=== PATIENT | female | born 1990 | race Caucasian/White ===

== ENCOUNTER 2017-02-08 21:30 | Emergency (ER) | payer OTHER ==
--- NOTE | ~2017-02-08 | EKG ---
PATIENT: RITESH THOMPSON UNIT #: [id number] Ventricular Rate: 89 BPM Atrial Rate: 89 BPM P-R Interval: 134 ms QRS Duration: 80 ms Q-T Interval: 364 ms QTC Calculation(Bezet): 442 ms P Arp: 76 degrees Calculated R Arp: 72 degrees Calculated T Arp: 54 degrees Diagnosis Line: Sinus rhythm with Possible Premature atrial Diagnosis Line: complexes with Aberrant conduction Diagnosis Line: Otherwise normal ECG Diagnosis Line: No previous ECGs available Diagnosis Line: Confirmed by CHEYENNE ODOM MD ([id number]) on Diagnosis Line: 02/12/2017 9:01:16 AM INTERPRETING MD: LEI MCELROY
--- NOTE | ~2017-02-08 | CR63 ---
[facility] A Service of [facility] RADIOLOGY TEXT RESULTS PATIENT: RITESH THOMPSON LOCATION: SED : 86 UNIT #: [id number] AGE: [address]: EDELMIRA GIRALDO SEX: F ORDER DR: [id number] [address] [address] [id number] MR#: [id number] Acc #: [id number] NAME: RITESH THOMPSON. : 1990 SEX: F STUDY DATE/TIME: 02/08/2017 22:53 UNIT: SED ROOM: STUDY DESCRIPTION: CR Chest 2 View Attending Physician: Edelmira Giraldo Aprn Ordering Physician: Edelmira Giraldo Aprn Primary Care Physician: No Primary Care Physician MEDICAL IMAGING REPORT This report is preliminary unless electronic signature is present. EXAM PA and lateral chest HISTORY Chest pain since yesterday. Painful breathing. COMPARISON 04/08/2016 FINDINGS PA and lateral examination of the chest upright shows a good expansion of the parenchyma with a normal distribution of the pulmonary vascularity. There is no indication of congestion, effusion, infiltrate, tumor, or nodular density. The pleural reflections and diaphragmatic contours are normal. The cardiac silhouette and mediastinal anatomy is within normal limits. IMPRESSION Normal chest. Dictated by... Jarvis Grijalva M.D. THIS IS AN ELECTRONICALLY VERIFIED REPORT Jarvis Grijalva M.D. at 02/09/2017 1:43 PM ATILIO/joyce TD: 02/09/2017 13:39 JOB #: [id number] [facility] A Service [facility] RADIOLOGY TEXT RESULTS PATIENT: RITESH THOMPSON LOCATION: SED : [birth year] UNIT #: [id number] AGE: [address]: EDELMIRA GIRALDO SEX: F ORDER DR: MEDICAL IMAGING REPORT Page 1 of 1
[~2017-02-08 21:30] MED LIST: AMOXICILLIN PO; ATARAX PO; BACTROBAN22 GM TOP; BENADRILINA25 MG PO; CLEOCIN HCL300 M1 PO; EPIPEN0.3 MG/0.1 IM; FAMOTIDINE20 M1 PO; FLEXERIL PO; FLEXERIL10 MG PO; IBUPROFEN800 MG PO; KETOPROFEN PO; NAPROSYN500 MG PO; NO MEDICATIONS; PLAN B ONE-STE1.5 MG PO; PREDNISONE PO; TUSSI-ORGANIDI473 M2 PO; VICODIN 5/500 T1 TAB PO; VOLTAREN50 MG PO; ZITHROMAX PO
[2017-02-08] MEDS ORDERED: NO MEDICATIONS (21:50)
== END 2017-02-09 01:12 | disposition home or self-care (01) ==
LOC: SED 21:30
DX: M94.0 Chondrocostal junction syndrome [Tietze] (principal); F17.210 Nicotine dependence, cigarettes, uncomplicated
CPT/HCPCS: 71020; 93005; 99285